=== PATIENT | male | born 1965 | race African-American/Black ===

== ENCOUNTER 2019-01-04 13:12 | Outpatient (CLI) | payer MEDICARE, MEDICAID ==
--- NOTE | 2019-01-04 14:38 | ULT ---
RENAL ULTRASOUND: History: Stage IV renal disease. FINDINGS: Real-time imaging of the right and left kidneys were performed. The right kidney measures 9.7, the le ft kidney 10 cm in size. There are no signs of cyst, mass or obstruction. Minimal thinning of the madhav al cortex is noted. The bladder is incompletely distended. IMPRESSION: No signs of any cyst, mass, or obstruction. Normal sized kidneys. POS: [facility]
== END 2019-01-04 13:13 | disposition home or self-care (01) ==
LOC: NAV ULT 13:12
PROVIDERS: ATTEND Internal Medicine
DX: I12.9 Hypertensive chronic kidney disease with stage 1 through stage 4 chronic kidney disease, or unspecified chronic kidney disease (principal); E11.22 Type 2 diabetes mellitus with diabetic chronic kidney disease; N18.4 Chronic kidney disease, stage 4 (severe); I42.9 Cardiomyopathy, unspecified; I25.10 Atherosclerotic heart disease of native coronary artery without angina pectoris; R60.1 Generalized edema
CPT/HCPCS: 76770

== ENCOUNTER 2019-08-01 16:57 | Outpatient (CLI) | payer MEDICARE, MEDICAID ==
[2019-08-01 17:50] LABS: Anion Gap 18 mmol/L (10-20); BUN (Urea Nitrogen) 40 mg/dL (8.4-25.7); Calc. Creatinine Clearance 0 mL/min (70-130); Calcium 9.3 mg/dL (7.8-10.44); Carbon Dioxide 29 mmol/L (22-29); Chloride 95 mmol/L (98-107); Estimated GFR-MDRD 24; Glucose 72 mg/dL (70-105); Potassium 4.4 mmol/L (3.5-5.1); Sodium 138 mmol/L (136-145)
[2019-08-01 18:00] LABS: Follow-up Chemistry Comp? YES; Follow-up Result - Chemistry REPORT FAXED
== END 2019-08-01 16:58 | disposition home or self-care (01) ==
LOC: NAV LAB 16:57
PROVIDERS: ATTEND Internal Medicine
DX: N19 Unspecified kidney failure (principal)
CPT/HCPCS: 80048